=== PATIENT | female | born 1975 | race Caucasian/White ===

== ENCOUNTER → 2018-05-09 08:46 | Outpatient (CLI) | payer BC, SELFPAY | DX: Z12.31 Encounter for screening mammogram for malignant neoplasm of breast (principal) | CPT/HCPCS: 77063; 77067 ==

== ENCOUNTER → 2018-06-22 18:19 | Outpatient (CLI) | payer BC, SELFPAY | PROVIDERS: Referring Provider Obstetrics & Gynecology; Visit Provider Obstetrics & Gynecology | DX: R30.0 Dysuria (principal) | CPT/HCPCS: 87086; 87088 ==

== ENCOUNTER → 2022-10-17 | Outpatient (CLI) | payer OTHER, SELFPAY ==
--- NOTE | 2022-10-17 13:24 | BI_ITS ---
MAMMOGRAPHY - BILATERAL SCREENING REASON FOR EXAM: Female, 47 years old. Routine annual screening examination. PERTINENT HISTORY: Non-contributory. TECHNIQUE: Digital bilateral breast wicho (3D mammographic acquisition) in the CC and MLO projections. 2-D mediolateral oblique (MLO) and craniocaudad (CC) views of both breasts were obtained. CAD: Full Field Digital Mammography with Computer Added Detection was performed. COMPARISON: Comparison is made with prior examination date 05/09/2018. FINDINGS: Breast Composition: The breasts are heterogeneously dense, which may obscure small masses. There are no dominant masses or suspicious calcifications. Stable benign-appearing bilateral axillary lymph nodes. No other significant abnormalities are identified. There has been no significant change since the prior study. BI/SCRN MAMM (CAD)W/WICHO BILAT IMPRESSION: Stable bilateral screening mammogram. Yearly follow-up mammogram recommended. (A) ASSESSMENT CATEGORY: BIRADS Category 2: Benign. A letter regarding these results will be sent to the patient by the facility within 30 days. Approximately 10% of breast cancers are not detected by mammography. A normal mammogram should not delay biopsy of a clinically suspicious abnormality. [id number] Electronically Signed: Aubrey Nunes MD at 14:43 EST ,
== END | disposition home or self-care (01) ==
LOC: OPBI 13:23
PROVIDERS: Visit Provider Nurse Practitioner Women's Health
DX: Z12.31 Encounter for screening mammogram for malignant neoplasm of breast (principal)
CPT/HCPCS: 77063; 77067

== ENCOUNTER → 2023-01-02 | Outpatient (CLI) | payer OTHER, SELFPAY ==
--- NOTE | 2023-01-02 14:02 | US_ITS ---
STUDY: ULTRASOUND BREAST - RIGHT REASON FOR EXAM: Female, 47 years old. Pain in the right breast. TECHNIQUE: Axial and longitudinal images of the RIGHT breast were performed with a high resolution ultrasound transducer. # OF IMAGES: 27 COMPARISON: Comparison is made with prior mammogram dated October 17, 2022. FINDINGS: RIGHT Breast: The upper outer aspect of the right breast was examined with ultrasound. This is the area of pain. No sonographic abnormality is seen. Incidental note is made of a 4.1 cm x 4.9 cm x 1.2 cm isoechoic to slightly echogenic nodule just inferior to the lateral aspect of the right breast suggestive of a lipoma. US/Breast Limited Unilateral IMPRESSION: No sonographic abnormality is seen in the area of pain. Findings suggestive of a 4.1 cm x 4.9 cm x 1.2 cm lipoma just inferior to the lateral aspect of the right breast ASSESSMENT CATEGORY: BIRADS Category 2: Benign. A letter regarding these results will be sent to the patient by the facility within 30 days. Electronically Signed: Aubrey Nunes MD at 11:05 EDT ,
== END | disposition home or self-care (01) ==
PROVIDERS: Referring Provider Nurse Practitioner Women's Health; Visit Provider Nurse Practitioner Women's Health
DX: N63.10 Unspecified lump in the right breast, unspecified quadrant (principal); R22.2 Localized swelling, mass and lump, trunk
CPT/HCPCS: 76642

== ENCOUNTER → 2023-01-08 | Outpatient (CLI) | payer OTHER, SELFPAY ==
[2023-01-15 14:09] LABS: HPV APTIMA, High Risk Negative (Negative)
== END | disposition home or self-care (01) ==
LOC: LABSPEC 16:21
PROVIDERS: Referring Provider Nurse Practitioner Women's Health; Visit Provider Nurse Practitioner Women's Health
DX: Z12.4 Encounter for screening for malignant neoplasm of cervix (principal)
CPT/HCPCS: 87624; 88175; G0145

== ENCOUNTER → 2023-01-20 | Outpatient (CLI) | payer OTHER, SELFPAY ==
[2023-01-20 12:22] LABS: Cholesterol 236 mg/dL (200); Glucose 99 mg/dL (74-106); High Density Lipoprotein 42 mg/dL; Thyroid Stim Hormone (TSH) 4.72 uIU/mL (0.358-3.74); Triglycerides 166 mg/dL; Very Low Density Lipoprotein 33 mg/dL (5-40); Vitamin D,25 Hydroxy 42.7 ng/mL
== END | disposition home or self-care (01) ==
LOC: PAVLAB 11:17
PROVIDERS: Referring Provider Nurse Practitioner Women's Health; Visit Provider Nurse Practitioner Women's Health
DX: Z13.1 Encounter for screening for diabetes mellitus (principal); Z13.21 Encounter for screening for nutritional disorder; Z13.29 Encounter for screening for other suspected endocrine disorder; R23.2 Flushing; Z13.220 Encounter for screening for lipoid disorders
CPT/HCPCS: 36415; 80061; 82306; 82947; 84439; 84443

== ENCOUNTER → 2023-05-20 | Outpatient (CLI) | payer OTHER, SELFPAY ==
[2023-05-20 11:50] LABS: Cholesterol 254 mg/dL (200); Free T3 2.5 pg/mL (2.18-3.98); High Density Lipoprotein 40 mg/dL; T4 Total, Thyroxin 7.9 ug/dL (4.8-13.9); Thyroid Stim Hormone (TSH) 4.64 uIU/mL (0.358-3.74); Triglycerides 259 mg/dL; Very Low Density Lipoprotein 52 mg/dL (5-40)
== END | disposition home or self-care (01) ==
LOC: LAB 11:00
PROVIDERS: Referring Provider Internal Medicine Cardiovascular Disease; Visit Provider Internal Medicine Cardiovascular Disease
DX: R00.1 Bradycardia, unspecified (principal); R00.2 Palpitations; E78.5 Hyperlipidemia, unspecified
CPT/HCPCS: 36415; 80061; 84436; 84443; 84481

== ENCOUNTER → 2023-06-16 | Outpatient (CLI) | payer OTHER, SELFPAY ==
--- NOTE | 2023-06-16 10:36 | STE_ITS ---
Reason For Study: CHEST PAIN, BRADYCARDIA Stress Results Protocol: Axel Protocol Maximum Predicted HR: 171 bpm Target HR: 145 bpm % Maximum Predicted HR: 85 % DurationHeart Rate Stage (mm:ss) (bpm) BP Comment BASELINE 42 102/70 STAGE 1 3:00 85 104/70 STAGE 2 3:00 115 122/72 STAGE 3 3:00 114 138/74 STAGE 4 1:30 146 / INCREASED SOB RECOVERY 68 98/60 Stress Duration: 10:30 mm:ss Maximum Stress HR: 146 bpm Baseline Echocardiogram Findings Stress Echo Wall motion Data Resting WM Intermediate WM Stress WM Resting Wall Motion Wall Motion Stress No regional wall motion All wall segments hyperdynamic abnormalities noted. post exercise except inferior wall. EKG Data The baseline ECG displays normal sinus rhythm. No ischemic changes. ECHO/Stress Test Echo w/o Contrast Interpretation Summary Patient exercised on the treadmill for 10 minutes and 30 seconds achieving a wo rkload of 13.4 METS. 85% of maximal predicted heart rate achieved. No ischemic ECG changes noted with exercise or in recovery. All wall segments hyperdynamic post exercise except the inferior wall. Consider ischemia of the inferior wall. Ordering Physician: Deisi Baig Referring Physician: Deisi Baig Performed By: Donna Robles RDCS
== END | disposition home or self-care (01) ==
PROVIDERS: Referring Provider Physician Assistant Medical; Visit Provider Physician Assistant Medical
DX: R06.02 Shortness of breath (principal); E07.9 Disorder of thyroid, unspecified
CPT/HCPCS: 93017; 93350

== ENCOUNTER → 2023-07-31 | Outpatient (CLI) | payer OTHER, SELFPAY ==
--- NOTE | 2023-07-31 12:45 | CT_ITS ---
STUDY: CT CHEST WITH CONTRAST REASON FOR EXAM: Female, 48 years old. ABNORMAL STRESS ECHO. Cardiac over read examination. RADIATION DOSAGE (If Supplied By Facility): CTDIvol = ( 45 ) mGy, DLP = ( 1605.86 ) mGycm TECHNIQUE: Transaxial imaging was performed following intravenous administration of IV 50mL Isovue-370. Individualized dose optimization techniques were used for this CT. COMPARISON: No relevant priors. FINDINGS: CHEST The lungs are normal. There is no demonstrated pleural abnormality. Normal heart and pericardium. No coronary artery calcification is seen. There are multiple small lymph nodes within the mediastinum, which are normal in size and morphology most compatible with reactive lymph hyperplasia. Normal hilar regions. Normal unenhanced pulmonary arteries. Normal aorta arch and descending thoracic aorta. Normal osseous structures. There is no demonstrated abnormality of the visualized upper abdomen. CT/Limited Chest CT Cardiac Only IMPRESSION: No coronary artery calcification is seen. Electronically Signed: Aubrey Nunes MD at 14:31 EST ,
[2023-07-31 12:56] VITALS: BP 106/51; PULSE 47; RESP 18; O2SAT 98; BMI 23.6
[2023-07-31 13:25] VITALS: BP 132/64; PULSE 51
[2023-07-31] MEDS: Nitroglycerin SL (ED/IMG/CATH) 0.4 MG TABLET SL (13:25)
[2023-07-31] MEDS: 0.9% Saline Lock 10 ML Syringe IV (13:27)
--- NOTE | 2023-08-04 16:24 | CCTA_ITS ---
CCTA w/Cont Coronary Arteries Date of Study:: 07/31/23 Abnormal stress echo Coronary Calcium Scoring: High-resolution Computed Tomographic imaging of the chest was performed on [07/31/2023], with particular attention paid to the coronary arteries. Intravenous contrast agent was administered per protocol and images reconstructed and displayed. LEFT MAIN CORONARY ARTERY: Arises from the coronary cusp with no significant stenosis [] LEFT ANTERIOR DESCENDING CORONARY ARTERY: No significant atherosclerotic plaquing noted [] LEFT CIRCUMFLEX CORONARY ARTERY: Nondominant vessel with no significant athe rosclerotic plaquing noted [] RIGHT CORONARY ARTERY: Dominant right coronary artery with no significant atherosclerotic plaquing present. [] CORONARY CALCIUM SCORE: Not performed Conclusion: Coronary CT angiography with no significant atherosclerotic plaquing present. []
== END | disposition home or self-care (01) ==
PROVIDERS: Referring Provider Physician Assistant Medical; Visit Provider Physician Assistant Medical
DX: R94.39 Abnormal result of other cardiovascular function study (principal)
CPT/HCPCS: 75574; 76380; Q9967; A4216

== ENCOUNTER → 2023-08-04 | Outpatient (CLI) | payer OTHER, SELFPAY ==
[2023-08-04 12:51] LABS: Absolute Lymphocyte Count 1.99 X10^3/uL (0.83-4.51); Absolute Neutrophil Count 2.7 X10^3/uL (2.0-7.7); Basophil# 0.05 X10^3/uL; Basophil% 0.9 % (0-1); Eosinophil# 0.51 X10^3/uL; Eosinophils% 9.2 % (0-5); Hematocrit 43.4 % (37-47); Hemoglobin 13.8 g/dL (12.0-15.0); Lymphocyte # 1.99 X10^3/ul (0.83-4.51); Lymphocyte % 35.9 % (19-41); Mean Corp Hgb Conc 31.8 g/dL (32-36); Mean Corpuscular Hgb 29.6 pg (27.0-32.0); Mean Corpuscular Volume 92.9 fL (81-99); Mean Platelet Vol. 11.4 fl (6.2-12.0); Monocyte% 5.4 % (0-10); NRBC Flagged by Analyzer 0 % (0-5); Neutrophil # 2.68 X10^3/uL (2.7-7.7); Neutrophil % 48.4 % (47-70); Platelet Count 248 K/mm3 (150-450); RBC Distribution Width CV 12.4 % (11.6-14.6); RBC Distribution Width SD 42.2 fl (35.1-43.9); Red Blood Count 4.67 M/mm3 (4.2-5.4); White Blood Count 5.5 K/mm3 (4.4-11.0)
[2023-08-04 13:18] LABS: ALB/GLOB Ratio 1.1 RATIO (0.9-2.4); AST(SGOT) 14 U/L (15-37); Alanine Aminotransfer ALT/SGPT 18 U/L (13-56); Albumin, Serum 3.5 g/dL (3.2-5.0); Alkaline Phosphatase 83 U/L (45-117); Anion Gap 4 (5-15); BUN 14 mg/dL (7-18); BUN/Creat Ratio 17.7 RATIO (10-20); Calcium,Total 9.1 mg/dL (8.5-10.1); Chloride 109 mmol/L (98-107); Cholesterol 153 mg/dL (200); Creatinine, Serum 0.79 mg/dL (0.55-1.02); EST Glomerular Filtration Rate 82 mL/min (>60); Est Glom Filt Rate - Afr Amer 99 mL/min (>60); Globulin 3.3 g/dL (2.2-4.2); Glucose 103 mg/dL (74-106); High Density Lipoprotein 48 mg/dL; Potassium 4.3 mmol/L (3.5-5.1); Protein, Total 6.8 g/dL (6.4-8.2); Sodium Level 139 mmol/L (136-145); Triglycerides 93 mg/dL; Very Low Density Lipoprotein 19 mg/dL (5-40)
== END | disposition home or self-care (01) ==
LOC: BIMLAB 10:51
PROVIDERS: PCP Internal Medicine; Referring Provider Internal Medicine; Visit Provider Internal Medicine
DX: Z00.00 Encounter for general adult medical examination without abnormal findings (principal)
CPT/HCPCS: 36415; 80053; 80061; 85025

== ENCOUNTER 2023-09-17 07:48 | Day surgery (SDC) | payer OTHER, SELFPAY ==
[2023-09-17] VITALS (8 sets, daily range): BP systolic 80–108; BP diastolic 44–60; PULSE 52–65; RESP 16–18; TEMP 36.6–36.9; O2SAT 97–98; BMI 24.5
--- OUTSIDE RECORDS SUMMARY | 2023-09-17 08:06 | XMS RPT_ITS | CCD ---
Author Name Unknown Address [address] [place] [address] Organization [facility] Results Test Name Value Interpretation Reference Range Facil ity Encounters Encounter Date Encounter Type Care Provider Facility Start: 04-18-2023 Emergency department patient visit Facility:[facility] Payers Date Payer Category Payer Unknown [id number] Summary Purpose Family History No Family History Records FoundNo Family History Records Found Advance Directives No Advanced Directives Records FoundNo Advanced Directives Records Found Additional Source Comments INFORMATION SOURCE (unrecogn ized section and content) DATE CREATED AUTHOR AUTHOR'S ORGANIZ ATION 04/19/2023 [facility] FOR RECORDS PERTAINING TO PATIENTS WHO ARE OR HAVE BEEN ENROLLED IN A CHEMICAL DEPENDENCY/SUBSTANCEABUSE PROGRAM, SOME INFORMATION MAY BE OMITTED. This clinical summary was aggregated from multiple sources. Caution should be exercised in using it in the provision of clinical care. This summary normalizes information from multiple sources, and as a consequence, information in this document may materially change the coding, format and clinical context of patient data. In addition, data may be omitted in some cases. CLINICAL DECISIONS SHOULD BE BASED ON THE PRIMARY CLINICAL RECORDS. [employer] [facility]. provides no warranty or guarantee of the accuracy or completeness of information in this document.
[2023-09-17] MEDS: Lactated Ringers 1,000 ML 15 ML IV (08:15)
--- NOTE | 2023-09-17 08:22 | PCM.HP.STD ---
[facility] - General General Date of Admission: 09/17/23 Date of Service: 09/17/23 Chief Complaint: Screening colonoscopy HPI Narrative MICHELLE AARON, is a 48 F who presents today for screening colonoscopy. She is never had a colonoscopy in the past. She is not having abdominal pain. She not have any nausea, vomiting or diarrhea. Overall she is in very good health. 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 She follows with cardiology. FORMERLY [facility], [facility] Medical History (Updated 09/10/23 @ 10:49 by Ryanne Bynum) ASCUS of cervix with negative high risk HPV Bradycardia Cardiology follow-up encounter Chest pain Climacteric Colon cancer screening Easy bruising Heartburn High cholesterol History of abnormal cervical Pap smear History of echocardiogram History of stress test Leg cramps Lump in chest Migraine headache Muscle pain Preventative health care Shortness of breath on exertion Smoker SOB (shortness of breath) Home Medications atorvastatin 20 mg tablet 10 mg PO DAILY 07/31/23 [History Last Taken 09/15/23 19:00] Allergy/AdvReac Type Severity Reaction Status Date / Time No Known Allergies Allergy Verified 09/17/23 08:12 Family History Grandmother Cancer cervical PGM leukemia MGM Father CAD (coronary artery disease) Stents Surgical History Hx of tubal ligation Social History Smoking Status: Current every day smoker tobacco type: cigarettes alcohol intake: current alcohol intake frequency: holidays/special occasions only details: social substance use type: marijuana caffeine: Yes Type: coffee Number of servings: 3 what type of physical activity do you participate in: none seatbelt use: always do you feel safe at home: Yes additional social history: [employer] Patient works at [employer] [facility] Review of Systems ROS Unobtainable: other Constitutional Constitutional: Denies fatigue, fever(s), poor appetite, weight gain or weight loss ENT HEENT: Denies mouth lesions Cardiovascular Cardiovascular: Denies abdominal bloating, abdominal edema or abdominal pain Respiratory/Chest Respiratory/Chest: Denies change in mental status, change in phlegm color, chest congestion or chest tightness Gastrointestinal Gastrointestinal: Denies belching, bloating, change in bowel habits, change in stool character, chewing difficulty, coffee ground emesis, constipation, cramping, diarrhea, dyspepsia, dysphagia, early satiety, excessive flatus, fecal incontinence, heartburn, hematemesis, hematochezia, hemorrhoids, loose stools, melena, nausea, odynophagia, rectal bleeding, tenesmus, vomiting or weight changes Genitourinary Genitourinary: Denies abdominal discomfort, burning urination or itching Musculoskeletal Musculoskeletal: Reports as per HPI; Denies muscle weakness or myalgias Integumentary Integumentary: Denies jaundice Neurologic Neurologic: Denies lack of coordination or weakness Psychiatric Psychiatric: Denies confusion, depression, memory loss, mood swings, paranoia or suicidal ideation Endocrine Endocrinology: Denies systems reviewed and no addt'l complaints, except as documented Hematologic/Lymphatic Hematologic/Lymphatic: Denies anemia, easy bleeding, easy bruising or lymphadenopathy Allergic/Immunologic Allergic/Immunologic: Denies systems reviewed and no addt'l complaints, except as documented Vital Signs Vital Signs Vital Signs: 09/17/23 08:13 09/17/23 08:13 Temperature 98.0 F Temperature Source Temporal Pulse Rate 52 L Respiratory Rate 18 Respiratory Pattern Normal Blood Pressure 108/54 L Blood Pressure Mean 72 Blood Pressure Source Monitor Blood Pressure Position Left Lateral Blood Pressure Location Left Arm Pulse Ox 98 Oxygen Delivery Method Room Air Weight Weight: 147 lb 11.355 oz Body Mass Index (BMI) 24.5 Physical Exam Const alert, oriented x3, no apparent distress, healthy appearing and well nourished General Appearance: cooperative, comfortable, well kempt and well developed Orientation / Consciousness: awake and oriented to person HEENT Head and Scalp: normocephalic and atraumatic Face and Sinus: normal facial exam Mouth: oral and palatal mucosa normal Eyes General Eye: normal appearance of both eyes Neck full ROM Lymph Lymphatic: no lymphadenopathy noted Chest inspection of chest normal Resp normal respiratory effort and no use of accessory muscles Cardio regular rate and regular rhythm GI normal to inspection, nondistended, normoactive bowel sounds, soft to palpation, non-tender, non-distended and no masses Auscultation: normoactive bowel sounds Palpation: soft Percussion: normal to percussion Rectal Exam: visual inspection normal and normal sphincter tone no CVA tenderness Back/Spine no CVA tenderness and normal ROM Extremity normal to inspection Peripheral Pulses: Yes pulses 2+ throughout Skin no rashes or lesions noted General Skin Exam: no breakdown, elasticity normal and turgor normal Neuro oriented x3 Motor Exam: strength 5/5 throughout Psych mental status grossly normal Appearance: grossly normal Attitude: calm Activity / Motor Behavior: appropriate eye contact Speech: normal speech Thought Process: normal thought process Thought Content: normal thought content Attention / Concentration: attention grossly intact Memory / Cognition: memory grossly intact Insight: insight good Judgement: judgement good Assessment & Plan Assessment/Plan (1) Encounter for screening for malignant neoplasm of colon: PLAN: She was explained alternatives, risk, benefits including not withstanding bleeding, infection, sepsis, perforation, need for emergent surgery . She will have an ASA of 2.
--- NOTE | 2023-09-17 09:00 | COLBX_PTH ---
PATHOLOGY RESULTS PATIENT: MICHELLE AARON LOC: EN U#:[id number] AGE/SX: 48/F ROOM: RE09/17/[address]: Dr. Gennaro Tang DO : 1975 BED: DIS: 09/17/2023 SPEC #: [id number] RECD: 09/17/23 12:23 STATUS: ADAMARIS LEEANNA #: [id number] TRAN: 09/17/23 09:[address]: Gennaro Tang DEPT: SURGICAL PATHOLOGY RECD BY: Luda Pritchett ENTERED: 09/17/23 12:23 SP TYPE: COLON BX OTHR DR: Dr. Sadie Tapia MD Tissues: Sigmoid colon biopsy Procedures: Surgery Specimen Level IV HEADER OPERATION: Colonoscopy - open access with polypectomy PRE-OP DIAGNOSIS: Screening TISSUE SUBMITTED: Sigmoid colon polyp MICROSCOPIC DIAGNOSIS Sigmoid colon polyp, biopsy: Hyperplastic polyp. AM:grayson 09/18/2023 MICROSCOPIC DESCRIPTION Slides are reviewed. GROSS DESCRIPTION Received in fixative is one container labeled with the patient's name and designated sigmoid colon polyp. The specimen consists of one irregular fragment of light quan soft tissue that measures 0.4 x 0.3 x 0.1 cm. The specimen is totally submitted in one cassette. / SJ:rg 09/17/2023 TC:5 CPT: 33778
--- NOTE | 2023-09-17 09:18 | OP.COLON_ITS ---
Patient Name: Meredith Govea Procedure Date: 09/17/2023 8:44 AM Date of : 1975 Age: 48 Procedure: Colonoscopy Indications: Screening for colorectal malignant neoplasm Providers: Gennaro Tang DO Referring MD: Sadie Tapia MD Medicines: Monitored Anesthesia Care Patient Profile: This is a 48 year old female. Refer to note in patient chart for documentation of history and physical. Last Colonoscopy: none. The patient's first colonoscopy is today. Complications: No immediate complications. Procedure: Pre-Anesthesia Assessment: - Prior to the procedure, a History and Physical was performed, and patient medications and allergies were reviewed. The patient is competent. The risks and benefits of the procedure and the sedation options and risks were discussed with the patient. All questions were answered and informed consent was obtained. Patient identification and proposed procedure were verified by the physician in the pre-procedure area. Mental Status Examination: alert and oriented. Airway Examination: normal oropharyngeal airway and neck mobility. Respiratory Examination: clear to auscultation. CV Examination: normal. Prophylactic Antibiotics: The patient does not require prophylactic antibiotics. Prior Anticoagulants: The patient has taken no anticoagulant or antiplatelet agents. ASA Grade Assessment: II - A patient with mild systemic disease. After reviewing the risks and benefits, the patient was deemed in satisfactory condition to undergo the procedure. The anesthesia plan was to use monitored anesthesia care (MAC). Immediately prior to administration of medications, the patient was re-assessed for adequacy to receive sedatives. The heart rate, respiratory rate, oxygen saturations, blood pressure, adequacy of pulmonary ventilation, and response to care were monitored throughout the procedure. The physical status of the patient was re-assessed after the procedure. After I obtained informed consent, the scope was passed under direct vision. Throughout the procedure, the patient's blood pressure, pulse, and oxygen saturations were monitored continuously. The Colonoscope was introduced through the anus and advanced to the cecum, identified by the appendiceal orifice, IC valve and transillumination. The colonoscopy was performed without difficulty. The patient tolerated the procedure well. The quality of the bowel preparation was good. The ileocecal valve, appendiceal orifice, and rectum were photographed. Scope In: 8:54:12 AM Scope Withdrawal Time 0 hours 12 minutes 59 seconds Scope Out: 9:09:47 AM Total Procedure Duration Time 0 hours 15 minutes 35 seconds Findings: The perianal and digital rectal examinations were normal. A 7 mm polyp was found in the sigmoid colon. The polyp was sessile. The polyp was removed with a hot snare. Resection and retrieval were complete. Verification of patient identification for the specimen was done. Estimated blood loss was minimal. Multiple small and large-mouthed diverticula were found in the recto-sigmoid colon and sigmoid colon. The exam was otherwise without abnormality on direct and retroflexion views. Impression: - One 7 mm polyp in the sigmoid colon, removed with a hot snare. Resected and retrieved. - Diverticulosis in the recto-sigmoid colon and in the sigmoid colon. - The examination was otherwise normal on direct and retroflexion views. Recommendation: - Discharge patient to home. - Resume previous diet. - Continue present medications. - Await pathology results. - Repeat colonoscopy in 5 years for surveillance. Procedure Code(s): --- Professional --- 53375, Colonoscopy, flexible; with removal of tumor(s), polyp(s), or other lesion(s) by snare technique CPT copyright 2021 [employer]. All rights reserved. The codes documented in this report are preliminary and upon candle extrusion machine operator review may be revised to meet current compliance requirements. Gennaro Tang DO 09/17/2023 9:18:34 AM This report has been signed electronically. Number of Addenda: 0 Note Initiated On: 09/17/2023 8:44 AM
--- NOTE | 2023-09-17 09:19 | OP.CCLET_ITS ---
09/17/2023 Sadie Tapia MD [address] [place] [address] [place] [address] Re : Colonoscopy procedure for Meredith Govea Dear Dr. Tapia This procedure was performed on Sunday, September 17, 2023. My impressions and recommendations are as follows: Impressions : - One 7 mm polyp in the sigmoid colon, removed with a hot snare. Resected and retrieved. - Diverticulosis in the recto-sigmoid colon and in the sigmoid colon. - The examination was otherwise normal on direct and retroflexion views. Recommendations : - Discharge patient to home. - Resume previous diet. - Continue present medications. - Await pathology results. - Repeat colonoscopy in 5 years for surveillance. My findings are described in the full procedure note, which is enclosed. If I can be of further assistance, please feel free to contact me at . Sincerely, Gennaro Friend, DO 09/17/2023 9:18:34 AM This report has been signed electronically.
== END 2023-09-17 09:55 | disposition home or self-care (01) ==
LOC: EN 07:48 → AC 07:51
PROVIDERS: PCP Internal Medicine; Referring Provider Internal Medicine; Visit Provider Internal Medicine Gastroenterology
PROC: 0DJD8ZZ Inspection of Lower Intestinal Tract, Via Natural or Artificial Opening Endoscopic (ICD-10-PCS; CPT 45378; principal; 2023-09-17 08:55)
DX: Z12.11 Encounter for screening for malignant neoplasm of colon (principal); K57.30 Diverticulosis of large intestine without perforation or abscess without bleeding; F17.210 Nicotine dependence, cigarettes, uncomplicated; K63.5 Polyp of colon; F12.90 Cannabis use, unspecified, uncomplicated; E78.00 Pure hypercholesterolemia, unspecified; Z79.899 Other long term (current) drug therapy
CPT/HCPCS: 45385; 88305; J7120; J2405

== ENCOUNTER → 2023-12-19 | Outpatient (CLI) | payer OTHER, SELFPAY ==
[2023-12-19 12:05] LABS: CPK Total, Creatine Kinase 68 U/L (26-192); Cholesterol 302 mg/dL (200); High Density Lipoprotein 46 mg/dL; Triglycerides 148 mg/dL; Very Low Density Lipoprotein 30 mg/dL (5-40)
== END | disposition home or self-care (01) ==
LOC: LAB 10:16
PROVIDERS: PCP Internal Medicine; Referring Provider Internal Medicine Cardiovascular Disease; Visit Provider Internal Medicine Cardiovascular Disease
DX: R07.89 Other chest pain (principal); F17.200 Nicotine dependence, unspecified, uncomplicated; E78.5 Hyperlipidemia, unspecified
CPT/HCPCS: 36415; 80061; 82550

== ENCOUNTER → 2024-03-01 | Outpatient (CLI) | payer OTHER, SELFPAY ==
[2024-03-01 15:19] LABS: Bacteria 0 SEEN /hpf (None Seen); Red Blood Cells-Urine 0 SEEN /hpf (0-5); White Blood Cells 0 SEEN /hpf (0-5)
[2024-03-01 16:55] LABS: Color, Urine Yellow (Yellow); Glucose, Dipstick Normal (Normal); Ketone-Dipstick Negative (Negative); Leukocyte Esterase-Dipstick 25 /ul (Negative); Nitrite-Dipstick Negative (Negative); Occult Blood-Urine Negative /ul (Negative); Protein-Dipstick Negative (Negative); Specific Gravity, Urine 1.025 (1.002-1.030); Urine Bilirubin Dipstick Negative (Negative); Urine Clarity Clear (Clear); Urine Urobilinogen Normal (Normal)
[2024-03-01 17:12] LABS: Mucous, Urine 2+ /hpf (<or=2+); Squamous Epithelial Cells - UA 0-5 SEEN /hpf (5-10)
[2024-03-01 21:20] LABS: Anion Gap 4 (5-15); BUN 13 mg/dL (7-18); BUN/Creat Ratio 15.3 RATIO (10-20); Calcium,Total 9.4 mg/dL (8.5-10.1); Chloride 109 mmol/L (98-107); Creatinine, Serum 0.85 mg/dL (0.55-1.02); EST Glomerular Filtration Rate 75 mL/min (>60); Est Glom Filt Rate - Afr Amer 91 mL/min (>60); Glucose 87 mg/dL (74-106); Potassium 4.6 mmol/L (3.5-5.1); Sodium Level 141 mmol/L (136-145)
== END | disposition home or self-care (01) ==
LOC: BIMLAB 15:18
PROVIDERS: PCP Internal Medicine; Visit Provider Internal Medicine
DX: R10.9 Unspecified abdominal pain (principal)
CPT/HCPCS: 36415; 80048; 81001

== ENCOUNTER → 2024-03-05 | Outpatient (CLI) | payer OTHER, SELFPAY ==
--- NOTE | 2024-03-05 13:13 | RAD_ITS ---
STUDY: X-RAY - THORACIC SPINE REASON FOR EXAM: Female, 48 years old. Chronic back pain TECHNIQUE: 2 view(s) of the thoracic spine were obtained. COMPARISON: None. FINDINGS: Normal kyphosis of the thoracic spine. There is no substantial scoliosis. Normal thoracic vertebrae and endplates. Normal disc space heights. The soft tissue structures are unremarkable. RAD/Thoracic Spine 3 Views IMPRESSION: Normal x-ray examination of the thoracic spine. However, if pain persists MRI may be useful for further assessment Electronically Signed: Shahriar Singh MD at 22:54 EDT ,
== END | disposition home or self-care (01) ==
LOC: MTRAD 13:13
PROVIDERS: PCP Internal Medicine; Referring Provider Internal Medicine; Visit Provider Internal Medicine
DX: M54.9 Dorsalgia, unspecified (principal)
CPT/HCPCS: 72072

== ENCOUNTER → 2024-10-25 | Outpatient (CLI) | payer OTHER, SELFPAY ==
[2024-10-25 15:36] LABS: Absolute Neutrophil Count 2.6 X10^3/uL (2.0-7.7); Basophil# 0.06 X10^3/uL; Basophil% 0.9 % (0-1); Eosinophil# 0.74 X10^3/uL; Eosinophils% 11.6 % (0-5); Hematocrit 41.8 % (37-47); Hemoglobin 13.6 g/dL (12.0-15.0); Lymphocyte % 39.2 % (19-41); Mean Corp Hgb Conc 32.5 g/dL (32-36); Mean Corpuscular Volume 92.1 fL (81-99); Mean Platelet Vol. 10.6 fl (6.2-12.0); Monocyte# 0.45 X10^3/uL; Monocyte% 7.1 % (0-10); NRBC Flagged by Analyzer 0 % (0-5); Neutrophil % 40.9 % (47-70); Platelet Count 244 K/mm3 (150-450); RBC Distribution Width CV 12.4 % (11.6-14.6); RBC Distribution Width SD 41.8 fl (35.1-43.9); Red Blood Count 4.54 M/mm3 (4.2-5.4); White Blood Count 6.4 K/mm3 (4.4-11.0)
[2024-10-25 16:11] LABS: AST(SGOT) 13 U/L (15-37); Alanine Aminotransfer ALT/SGPT 19 U/L (13-56); Albumin, Serum 3.4 g/dL (3.2-5.0); Alkaline Phosphatase 90 U/L (45-117); Anion Gap 3 (5-15); BUN 13 mg/dL (7-18); BUN/Creat Ratio 16.2 RATIO (10-20); Calcium,Total 8.9 mg/dL (8.5-10.1); Chloride 112 mmol/L (98-107); Cholesterol 277 mg/dL (200); EST Glomerular Filtration Rate 80 mL/min (>60); Est Glom Filt Rate - Afr Amer 97 mL/min (>60); Globulin 3.3 g/dL (2.2-4.2); Glucose 97 mg/dL (74-106); High Density Lipoprotein 47 mg/dL; Potassium 4.5 mmol/L (3.5-5.1); Protein, Total 6.7 g/dL (6.4-8.2); Sodium Level 140 mmol/L (136-145); T4 Free Direct 0.76 ng/dL (0.76-1.46); Triglycerides 237 mg/dL; Very Low Density Lipoprotein 47 mg/dL (5-40)
[2024-10-27 08:09] LABS: Thyroid Peroxidase AB 403 IU/mL (0-34)
== END | disposition home or self-care (01) ==
LOC: BIMLAB 11:39
PROVIDERS: PCP Internal Medicine; Referring Provider Internal Medicine; Visit Provider Internal Medicine
DX: E78.5 Hyperlipidemia, unspecified (principal); R79.89 Other specified abnormal findings of blood chemistry
CPT/HCPCS: 36415; 80053; 80061; 84439; 84443; 85025; 86376

== ENCOUNTER → 2024-11-01 | Outpatient (CLI) | payer OTHER, SELFPAY ==
--- NOTE | 2024-11-01 08:57 | BI_ITS ---
PROCEDURE: DIAG MAMM W/CAD, BILAT REASON FOR EXAM: F, Age 49 y/o, right axillary pain. TECHNIQUE: Bilateral screening digital breast tomosynthesis with 2D and 3D images. Computer aided detection. COMPARISON: Baseline study. FINDINGS: The breasts are heterogeneously dense which may obscure small masses. No suspicious masses, areas of developing architectural distortion, or suspicious calcifications. BI/DIAG MAMM W/CAD, BILAT IMPRESSION: BI-RADS 0: INCOMPLETE - NEED ADDITIONAL IMAGING EVALUATION. Follow-up code: Targeted sonographic correlation recommended. The patient will be notified of the results by letter. Reading Location: [facility]
--- NOTE | 2024-11-01 08:57 | US_ITS ---
PROCEDURE: BREAST LIMITED UNILATERAL REASON FOR EXAM: Right axillary pain. COMPARISON: Comparison is made with prior mammogram done earlier in the day. TECHNIQUE: Targeted right axillary breast ultrasound. FINDINGS: RIGHT: Ultrasound targeted to the axillary region at the right breast. Fibroglandular tissue. No abnormality is seen. US/Breast Limited Unilateral IMPRESSION: Unremarkable targeted ultrasound of the right axilla. BI-RADS 2: BENIGN. RECOMMEND ANNUAL MAMMOGRAPHIC SCREENING. Reading Location: [facility]
== END | disposition home or self-care (01) ==
LOC: OPBI 08:56
PROVIDERS: PCP Internal Medicine; Referring Provider Internal Medicine; Visit Provider Internal Medicine
DX: N64.4 Mastodynia (principal)
CPT/HCPCS: 76642; 77062; 77066; G0279

== ENCOUNTER 2024-12-14 11:07 | Outpatient (RCR) | payer OTHER, SELFPAY | END 2025-01-12 23:59 | LOC: NS 11:07 | PROVIDERS: PCP Internal Medicine; Referring Provider Internal Medicine; Visit Provider Internal Medicine | DX: Z71.3 Dietary counseling and surveillance (principal); E06.3 Autoimmune thyroiditis | CPT/HCPCS: 97802 ==

== ENCOUNTER → 2024-12-14 | Outpatient (CLI) | payer OTHER, SELFPAY ==
[2024-12-14 17:40] LABS: Thyroid Stim Hormone (TSH) 0.277 uIU/mL (0.300-4.200)
[2024-12-16 04:08] LABS: Thyroid Peroxidase AB > 600 IU/mL (0-34)
== END | disposition home or self-care (01) ==
LOC: BIMLAB 12:45
PROVIDERS: PCP Internal Medicine; Referring Provider Internal Medicine; Visit Provider Internal Medicine
DX: E06.3 Autoimmune thyroiditis (principal)
CPT/HCPCS: 36415; 84439; 84443; 84482; 86376

== ENCOUNTER → 2025-01-31 | Outpatient (CLI) | payer OTHER, SELFPAY ==
[2025-01-31 13:45] LABS: T4 Total, Thyroxin 4.7 ug/dL (4.8-13.9)
== END | disposition home or self-care (01) ==
LOC: BIMLAB 09:31
PROVIDERS: PCP Internal Medicine; Referring Provider Internal Medicine; Visit Provider Internal Medicine
DX: R79.89 Other specified abnormal findings of blood chemistry (principal); E06.3 Autoimmune thyroiditis
CPT/HCPCS: 36415; 84436; 84439; 84443; 84482; 86376

== ENCOUNTER → 2025-03-09 | Outpatient (CLI) | payer OTHER, SELFPAY ==
[2025-03-09 13:19] LABS: Cholesterol 186 mg/dL (<=200); High Density Lipoprotein 40 mg/dL; Low Density Lipoprotein Calc. 107 mg/dL; Triglycerides 195 mg/dL; Very Low Density Lipoprotein 39 mg/dL (5-40); cholesterol:hdl ratio screen 4.64
== END | disposition home or self-care (01) ==
LOC: BIMLAB 11:03
PROVIDERS: PCP Internal Medicine; Referring Provider Internal Medicine; Visit Provider Internal Medicine
DX: E03.9 Hypothyroidism, unspecified (principal); E78.5 Hyperlipidemia, unspecified
CPT/HCPCS: 36415; 80061; 84439; 84443

== ENCOUNTER 2025-03-30 13:30 | Outpatient (CLI) | payer OTHER, SELFPAY ==
--- NOTE | 2025-03-30 13:30 | LIP_PTH ---
PATIENT: MICHELLE AARON LOC: [facility] U#:[id number] AGE/SX: 49/F ROOM: RE03/30/[address]: Dr. Maria A Goncalves MD : 1975 BED: DIS: 03/30/2025 SPEC #: [id number] RECD: 03/30/25 14:15 STATUS: ADAMARIS RESally #: [id number] TRAN: 03/30/25 13:[address]: Maria A Goncalves DEPT: SURGICAL PATHOLOGY RECD BY: rC Guadarrama ENTERED: 03/30/25 14:28 SP TYPE: LIPOMA OTHR DR: Dr. Sadie Tapia MD Tissues: A - Soft tissues, NOS Procedures: Surgery Specimen Level III HEADER OPERATION: Excision of right flank lipoma PRE-OP DIAGNOSIS: Lipoma TISSUE SUBMITTED: A- Right flank lipoma MICROSCOPIC DIAGNOSIS A. Flank, right, lipoma, excision: - Mature adipose consistent with lipoma. MICROSCOPIC DESCRIPTION Slides are reviewed. GROSS DESCRIPTION A. Received in formalin labeled with the patient's name and date of . Designated as R flank lipoma is a 5.2 x 4.0 x 2.1 cm quan-yellow, fatty tissue mass devoid of orientation. The external surfaces are inked black. Sectioning reveals quan-yellow, homogenous cut surfaces. Continuous Improvement Consultant sections are submitted in 2 cassettes. [place] 03/30/2025 CPT:50695
--- NOTE | 2025-03-30 13:30 | LIP_PTH ---
PATIENT: MICHELLE AARON LOC: [facility] U#:[id number] AGE/SX: 49/F ROOM: RE03/30/[address]: Dr. Maria A Goncalves MD : 1975 BED: DIS: 03/30/2025 SPEC #: [id number] RECD: 03/30/25 14:15 STATUS: ADAMARIS RESally #: [id number] TRAN: 03/30/25 13:[address]: Maria A Goncalves DEPT: SURGICAL PATHOLOGY RECD BY: Cr Guadarrama ENTERED: 03/30/25 14:28 SP TYPE: LIPOMA OTHR DR: Dr. Sadie Tapia MD Tissues: A - Soft tissues, NOS Procedures: Surgery Specimen Level III HEADER OPERATION: Excision of right flank lipoma PRE-OP DIAGNOSIS: Lipoma TISSUE SUBMITTED: A- Right flank lipoma MICROSCOPIC DIAGNOSIS A. Flank, right, lipoma, excision: - Mature adipose consistent with lipoma. MICROSCOPIC DESCRIPTION Slides are reviewed. GROSS DESCRIPTION A. Received in formalin labeled with the patient's name and date of . Designated as R flank lipoma is a 5.2 x 4.0 x 2.1 cm uqan-yellow, fatty tissue mass devoid of orientation. The external surfaces are inked black. Sectioning reveals quan-yellow, homogenous cut surfaces. Medical Staff Physician sections are submitted in 2 cassettes. [place] 03/30/2025 CPT:31919
== END 2025-03-30 23:59 | disposition home or self-care (01) ==
PROVIDERS: PCP Internal Medicine; Referring Provider Surgery; Visit Provider Surgery
DX: D17.39 Benign lipomatous neoplasm of skin and subcutaneous tissue of other sites (principal)
CPT/HCPCS: 88304

== ENCOUNTER → 2025-05-30 | Outpatient (CLI) | payer OTHER, SELFPAY ==
[2025-05-30 12:12] LABS: Hematocrit 42.7 % (37-47); Hemoglobin 13.9 g/dL (12.0-15.0); Immature Granulocytes Count 0.020 X10^3/uL (0.0-0.0); Mean Corp Hgb Conc 32.6 g/dL (32-36); Mean Corpuscular Volume 93.2 fL (81-99); Mean Platelet Vol. 10.9 fl (6.2-12.0); NRBC Flagged by Analyzer 0 % (0-5); Platelet Count 258 K/mm3 (150-450); RBC Distribution Width CV 12.1 % (11.6-14.6); RBC Distribution Width SD 41.6 fl (35.1-43.9); Red Blood Count 4.58 M/mm3 (4.2-5.4); White Blood Count 6.6 K/mm3 (4.4-11.0)
[2025-05-30 13:12] LABS: AST(SGOT) 15 U/L (<=31); Alanine Aminotransfer ALT/SGPT 9 U/L (<=34); Albumin, Serum 4.0 g/dL (3.5-5.0); Alkaline Phosphatase 90 U/L (35-104); Anion Gap 9 (5-15); BUN 11 mg/dL (4-19); BUN/Creat Ratio 12.3 RATIO (10-20); Calcium,Total 9.4 mg/dL (7.6-11.0); Carbon Dioxide 24.3 mmol/L (21.0-32.0); Chloride 108 mmol/L (98-108); Globulin 2.6 g/dL (2.2-4.2); Glucose 105 mg/dL (70-99); Potassium 4.6 mmol/L (3.3-5.1); Vitamin B12 398 pg/mL (180-914); Vitamin D,25 Hydroxy 28.9 ng/mL (30-100)
== END | disposition home or self-care (01) ==
LOC: BIMLAB 11:14
PROVIDERS: PCP Internal Medicine; Referring Provider Internal Medicine; Visit Provider Internal Medicine
DX: E06.3 Autoimmune thyroiditis (principal); E03.9 Hypothyroidism, unspecified; F39 Unspecified mood [affective] disorder
CPT/HCPCS: 36415; 80053; 82306; 82607; 84439; 84443; 85025

== ENCOUNTER → 2025-06-27 | Outpatient (CLI) | payer OTHER, SELFPAY ==
--- NOTE | 2025-06-27 11:50 | RAD_ITS ---
PROCEDURE: LUMBAR SPINE 2 OR 3 VIEWS 06/27/2025 REASON FOR EXAM: DDD TECHNIQUE: Procedure Code: RADSPLL Modality: DX Procedure: LUMBAR SPINE 2 OR 3 VIEWS COMPARISON: None. FINDINGS: No evidence of fracture or subluxation. Alignment is anatomic. Preserved vertebral body heights and disc spaces. Minimal spondylotic changes. Grossly unremarkable soft tissues. RAD/Lumbar Spine 2 or 3 Views IMPRESSION: No evidence of fracture or malalignment. Minimal spondylotic changes. Reading Location: [id number]
== END | disposition home or self-care (01) ==
LOC: RAD 11:36
PROVIDERS: PCP Internal Medicine; Referring Provider Anesthesiology Pain Medicine; Visit Provider Anesthesiology Pain Medicine
DX: M51.369 Other intervertebral disc degeneration, lumbar region without mention of lumbar back pain or lower extremity pain (principal)
CPT/HCPCS: 72100

== ENCOUNTER 2025-08-03 10:00 | Outpatient (RCR) | payer OTHER, SELFPAY ==
--- NOTE | 2025-07-05 09:47 | HP.PTEVAL_ITS ---
Patient's Visit Information Visit Information Visit Information: MICHELLE AARON is a 50 year old F referred to Physical Therapy by Dr. Renuka Edwards MD with a diagnosis of back pain. Date of Evaluation: 07/04/25 Physical Therapist: Mumtaz Woodard, DPT, OCS, CSCS Visit Plan Frequency: 2x /Week Duration: 4 Weeks Plan: Postural education provided, use of lumbar roll in sitting for symptom relief. Issued HEP of supine bilat shoulder flexion (hands together) with rolled towel under thoracic spine to increase t/s extension with decreased symptoms noted. Recheck technique with HEP. Continued to monitor bilat t/s rotation AROM and symptom response to t/s extension. Begin scapular and postural strengthening. Consider adding t/s on wall if symptoms continue to respond well. Monitor L foot symptoms for possible lumbar involvement. POC transferred to staff PT after evaluation. Subjective Subjective: Pt is 50 y.o. female referred to PT by Dr. Renuka Edwards for back pain. Pt reports hx of chronic back pain after having her son 28 yrs ago on R side of low back that she attributes to epidural, notes those symptoms have now resolved. Currently complaining of central mid thoracic pain that radiates to L side. Pt describes pain as constant 4-5/10. Insidious onset. Describes as achy/sharp. Aggravated with lifting, bending, walking, coughing, and house cleaning tasks. Relieved with heat, pillows behind back in sitting. Has tried medications in past with no relief. States she is here because she needs PT prior to getting MRI approved. 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 Also reports intermittent numbness lateral 2 toes of L foot pain under ball of foot with shoes, reports she prefers to walk barefoot. Denies changes with B/B. Denies saddle paresthesia, denies MVA/trauma, denies falls, denies recent surgery. Denies radicular symptoms in legs or wrapping around torso. Pain is resulting in difficulty sleeping at night (1-2 hrs at a time), sitting >1 hr, completing lifting/carrying tasks at work and completing sit to stand transitions. Pain Mid thoracic: Pain Intensity (Out of 10): 4 Pain Intensity Range: 4 and 5 Objective Objective: Symmetrical light touch bilat LE. Tyler LE MMT symmetrical except L DF 4-/5 and L PF 4/5 with pain noted over met heads. C/s myotomes symmetrical WFL. Posture: Hallux valgus noted on L foot with pes planus bilat. Increased kyphosis noted in sitting with fwd rounded shoulders. Increased lumbar lordosis noted in standing. L/S AROM : flexion 3/5, R lateral flexion 4/5, L lateral flexion 5/5. C/S AROM: WFL T/S AROM : R rotation more limited than L. Palpation: tenderness noted with palpation of L paraspinals, L levator, rhomboid, lower trap and lat. Mild restriction: bilat quad and hamstrings Special Tests Thoracic Sitting: Flexion - Symptoms During Testing: Produces Thoracic Sitting: Flexion - Symptoms After Testing: Worse Thoracic Sitting: Extension - Mechanical Response: Increases motion Thoracic Sitting: Extension - Symptoms During Testing: Decreases Thoracic Sitting: Extension - Symptoms After Testing: Better L/S Left Straight Leg Raise: Negative L/S Right Straight Leg Raise: Negative L/S Left Femoral Nerve Tension: Negative L/S Right Femoral Nerve Tension: Negative Balance/Special Test Scores Oswestry Low Back Score: 15 30 Second Chair Rise Test Seconds: 10 Goals Goal 1:: Pt will report decrease in symptom frequency from constant to intermittent to demonstrate healing. Goal Time Frame: 2-4 Weeks Goal 2:: Pt will be able demonstrate correct body mechanics with lifting /carrying tasks in order to avoid aggravation of symptoms. Goal Time Frame: 2-4 Weeks Goal 3:: Pt will report decrease in sleep disturbances at night to less than 3x/night. Goal Time Frame: 2-4 Weeks Goal 4:: Pt will be indep with HEP to improve postural/scapula strength. Goal Time Frame: 2-4 Weeks Rehabilitation Potential Physical Therapy Diagnosis: Pt presents with decreased t/s ROM, pain, and impaired postural, strength resulting postural deviations in sitting and pain with completing work/home tasks. Signs and symptoms respond well to thoracic ext at eval, with possible muscular component as pt is tender with palpation of musculature along L paraspinals and scapular region. Rehabilitation Potential: Fair Anticipated Interventions Patient/Client Instruction: Educate patient on: Condition and Plan of Care For the Purpose of:: To decrease pain, To increase ROM, To improve ability of physical actions for home/community/work/leisure and To increase flexibility/ROM Therapeutic Exercise to Include: Strength training, Body mechanics, Postural training, Flexibilty training, Active ROM, Kat Exercises and Scapular Strength/Stabilization Comment: Limit t/s flexion For the Purpose of:: To increase ROM, To improve ability of physical actions for home/community/work/leisure and To improve ability to perform tasks related to life management Functional Training to Include: ADL Training and Functional home training For the Purpose of:: To decrease pain, To improve muscle performance and motor function and To improve ability of physical actions for home/community/work/leisure Manual Therapy Techniques to Include: Mobilization and Soft tissue mobilization For the Purpose of:: To decrease pain and To increase ROM Text: Thank you for the opportunity to evaluate your patient. For Medicare and Medicare HMO plans, please review the plan of care and approve it. It will need to be FAXED BACK to us at [phone] for Medicare purposes. For Medicare only, by signing this I certify the plan of care. Please let me know if there are questions or concerns regarding this plan of care. Physician Signature: Date:
--- NOTE | 2025-08-03 10:29 | HP.PTDCSUM_ITS ---
Discharge Summary D/C summary: It has been my pleasure to treat MICHELLE AARON referred by Dr. Renuka Edwards MD, with the diagnosis of back pain for a total of 7 visit(s). Discharge Date: 08/03/25 Please see the following information for a summary of their discharge status. Subjective Subjective: Pt. reports overall not much change in her symptoms. She does have some temp relief, but only for a short period of time. Pt. reports being maybe 10% better overall. Pain Mid thoracic: Pain Intensity (Out of 10): 6 Overall Improvement % Improvement: 10 Objective Objective/Function: ROM: Pt. has good ROM of B shoulders, mild increase in L scapular/thoracic region, increase no worse MMT: Pt. has 5/5 strength throughout GAIT: Pt. has normal gait pattern. PALPATION: Pt. has marked tenderness throughout thoracic PAs and with lateral on L side. POSTURE: Pt. is able to maintain good posture throughout lumbar and thoracic spine. Pt. reports no change in her symptoms with improved posture. Goals Goal 1:: Pt will report decrease in symptom frequency from constant to intermittent to demonstrate healing. Goal Progress: Progressing Goal 2:: Pt will be able demonstrate correct body mechanics with lifting/car rying tasks in order to avoid aggravation of symptoms. Goal Progress: Progressing Goal 3:: Pt will report decrease in sleep disturbances at night to less than 3x/night. Goal Progress: Not Progressing Goal 4:: Pt will be indep with HEP to improve postural/scapula strength. Goal Progress: Goal Met Plan Plan: Pt. to be DC from PT at this point in time. Pt. has not had much benefit from PT and further evaluation may be warranted. D/C Information d/c sentence: If there are questions or concerns regarding this patient's physical therapy, please feel free to call me at [phone]. Thank you for the referral of this patient. Sincerely, Waqar Trujillo Sipos, DPT Balance/Gait/Functional tests Balance/Special Test Scores Oswestry Low Back Score: 17 30 Second Chair Rise Test Seconds: 10 Improvement % Improvement: 10
== END 2025-08-03 19:00 | disposition home or self-care (01) ==
LOC: PT 10:00
PROVIDERS: PCP Internal Medicine; Referring Provider Anesthesiology Pain Medicine; Visit Provider Anesthesiology Pain Medicine
DX: M54.9 Dorsalgia, unspecified (principal)
CPT/HCPCS: 97014; 97110; 97162; 97530; G0283

== ENCOUNTER → 2025-08-29 | Outpatient (CLI) | payer OTHER, SELFPAY ==
--- NOTE | 2025-08-29 10:58 | RAD_ITS ---
PROCEDURE: THORACIC SPINE 3 VIEWS 08/29/2025 REASON FOR EXAM: RADICULOPATHY, LUMBAR REGION TECHNIQUE: Procedure Code: RADSPT Modality: DX Procedure: THORACIC SPINE 3 VIEWS COMPARISON: Thoracic spine radiographs 03/05/2024. FINDINGS: The thoracic kyphosis is maintained. The thoracic vertebral bodies are normal in height. The intervertebral disc space is preserved. No significant spondylolisthesis. A few scattered small anterior osteophytes. The visualized lungs are unremarkable. RAD/Thoracic Spine 3 Views IMPRESSION: Unremarkable radiographs of the thoracic spine. Reading Location: [id number]
== END | disposition home or self-care (01) ==
PROVIDERS: PCP Internal Medicine; Referring Provider Anesthesiology Pain Medicine; Visit Provider Anesthesiology Pain Medicine
DX: M54.14 Radiculopathy, thoracic region (principal)
CPT/HCPCS: 72072